=== PATIENT | male | born 1950 | race African-American/Black ===

== ENCOUNTER 2018-04-26 18:40 | Inpatient (IN) ==
[2018-04-26] MEDS ORDERED: Sod Chloride 0.9% Inj 2,000 ML IV.SIG ONE (19:56)
[2018-04-26] MEDS ORDERED: Acetaminophen 325 MG Tablet PO ONE (19:56)
[2018-04-26 20:45] LABS: Baso # (Auto) 0.1 th/mm3 (0.0-0.2); Baso % (Auto) 0.4 % (0.0-2.0); Eos % (Auto) 0.1 % (0.0-4.0); Hematocrit 38.8 % (39.0-51.0); Hemoglobin 12.2 gm/dL (13.0-17.0); Lymph # (Auto) 0.5 th/mm3 (1.0-4.8); Lymph % (Auto) 2.6 % (9.0-44.0); Mean Corpuscular HGB Conc 31.6 % (32.0-36.0); Mean Corpuscular Hemoglobin 27.6 pg (27.0-34.0); Mean Corpuscular Volume 87.5 fL (80.0-100.0); Mean Platelet Volume 8.1 fL (7.0-11.0); Mono # (Auto) 1.1 th/mm3 (0.0-0.9); Mono % (Auto) 6.5 % (0.0-8.0); Neut # (Auto) 15.6 th/mm3 (1.8-7.7); Neut % (Auto) 90.4 % (16.0-70.0); Platelet Count 307 th/mm3 (150-450); Red Blood Count 4.43 mil/mm3 (4.50-5.90); White Blood Count 17.2 th/mm3 (4.0-11.0)
[2018-04-26] MEDS ORDERED: Aztreonam Inj 2 GM in Sodium Chloride 0.9% Inj 100 ML IV.SIG STA (20:49)
[2018-04-26] MEDS ORDERED: Vancomycin Inj 1,000 MG in Sodium Chlor 0.9% Inj 250 ML IV.SIG STA (20:49)
--- NOTE | 2018-04-26 20:54 | XR ---
EXAM DATE: 04/26/2018 8:16 PM EDT AGE/SEX: 67 years / Male INDICATIONS: Fever. CLINICAL DATA: This is the patient's initial encounter. Patient reports that signs and symptoms have been present for 1 day and indicates a pain score of 0/10. MEDICAL/SURGICAL HISTORY: . Hypertension. Arthritis None. COMPARISON: [facility], XR CHEST PA AND LAT, 04/03/2016. . FINDINGS: A single AP view of the chest demonstrates the lungs to be symmetrically aerated without evidence of mass, infiltrate or effusion. The cardiomediastinal contours are unremarkable. Osseous structures a re intact. Spurs are seen in the thoracic spine. CONCLUSION: No acute cardiothoracic process. Electronically signed by: Shaun Faye MD 04/26/2018 8:52 PM EDT
[2018-04-26 20:59] LABS: Albumin 2.9 g/dL (3.4-5.0); Anion Gap 10 meq/L (5-15); Aspartate Aminotransferase 31 U/L (15-37); Blood Urea Nitrogen 16 mg/dL (7-18); Calcium 8.8 mg/dL (8.5-10.1); Carbon Dioxide 22.7 meq/L (21.0-32.0); Chloride 104 meq/L (98-107); Glomerular Filtration Rate 61 mL/min (>89); Glucose,Random 125 mg/dL (74-106); Sodium 137 meq/L (136-145)
[2018-04-26 21:04] LABS: Alanine Aminotransferase 30 U/L (12-78); Alkaline Phosphatase 79 U/L (45-117); Total Protein 9.8 g/dL (6.4-8.2)
--- NOTE | 2018-04-26 21:33 | ED ---
HPI General Chief Complaint: Extremity Injury, Lower Stated Complaint: Leg Pain Time Seen by Provider: 04/26/18 19:45 Source: patient Mode of arrival: ambulatory Limitations: no limitations History of Present Illness HPI Narrative: 67-year-old male with PMH of DM, HTN presents the ED for evaluation of pain and swelling of the right lower extremity. Gradual onset. Pain rated 8/10 on presentation, aching in character, no alleviating or exacerbating factors reported. Patient states that the swelling gets worse with standing and is improved by elevating the leg. The patient endorses "hitting my ankle" first he says 2 or 3 days ago but then states the wounds been there "about a month." He denies fever, chills, chest pain, shortness of breath, abdominal pain, nausea, vomiting, numbness, tingling, weakness, limitations range of motion of the extremity. No treatment attempted at home. Related Data Home Medications Medication Instructions Recorded Confirmed Unable to Obtain Home Meds 04/26/18 04/26/18 Allergies Allergy/AdvReac Type Severity Reaction Status Date / Time penicillin G Allergy Severe HIVES Unverified 04/26/18 21:29 tetanus toxoid, adsorbed Allergy Severe Edema Unverified 04/26/18 21:29 Review of Systems ROS: all other systems reviewed are negative PMFSH Medical History Medical History Diabetes (Acute) Social History Social History Substance History: No History of Abuse Second Hand Smoke Exposure: No Smoking Status: Never smoker How Often Do You Have a Drink Containing Alcohol: Never Exam Narrative Exam Narrative: GENERAL: Well-nourished and well-developed -Cong[place]ese male in no acute distress. SKIN: Focused skin assessment warm/dry. Chronic skin changes in the bilateral lower extremities. HEAD: Atraumatic. Normocephalic. EYES: Pupils equal and round. No scleral icterus. No injection or drainage. ENT: No nasal bleeding or discharge. Mucous membranes pink and moist. NECK: Trachea midline. No JVD. CARDIOVASCULAR: Regular rate and rhythm. No murmur appreciated. RESPIRATORY: No accessory muscle use. Clear to auscultation. Breath sounds equal bilaterally. GASTROINTESTINAL: Abdomen soft, non-tender, nondistended. Hepatic and splenic margins not palpable. MUSCULOSKELETAL: No obvious deformities. No clubbing. No cyanosis. No edema. FOCUSED RIGHT LOWER EXTREMITY EXAM: 2+ DP pulse. 2+ pitting edema to the knee. Homans sign positive. There is a tender, shallow, 3-4 cm ulcer on the lateral aspect of the right ankle. The extremity is warm to the touch. Neurovascularly intact distally. NEUROLOGICAL: Awake and alert. No obvious cranial nerve deficits. Motor grossly within normal limits. Normal speech. PSYCHIATRIC: Appropriate mood and affect; insight and judgment normal. Course Initial Documented Vital Signs Temperature 102.7 F H 04/26/18 19:12 Pulse Rate 120 H 04/26/18 19:12 Respiratory Rate 23 04/26/18 19:12 Blood Pressure 155/79 H 04/26/18 19:12 Pulse Oximetry 96 04/26/18 19:12 Last Documented Vital Signs Temperature 99.1 F 04/26/18 21:41 Pulse Rate 106 H 04/26/18 21:41 Respiratory Rate 18 04/26/18 21:41 Blood Pressure 138/62 04/26/18 21:41 Pulse Oximetry 94 L 04/26/18 21:41 Medical Decision Making MDM Narrative Medical decision making narrative: 67-year-old male with PMH of DM, HTN presents the ED for evaluation of pain and swelling in the right lower extremity. Temp is 102.9, heart rate in the 120s on presentation. Physical exam concerning for cellulitis of the right lower extremity. IV was established. Sepsis fluid resuscitation was initiated. Patient was administered Tylenol by mouth. CBC with leukocytosis of 70.2, neutrophil predominant. Creatinine 1.39. BUN 16. Lactic acid 2.6. Patient was administered aztreonam, Flagyl, vancomycin. Ultrasound and x-ray of the right lower extremity pending. I discussed the results of the workup as well as the recommendation for admission with the patient. He reluctantly agreed to admission. I spoke with GILMER Castro. She agrees to accept the patient to the medicine service under Dr. Menjivar. Please see medicine notes for disposition. Medical Screen Exam Complete: Yes Emergency Medical Condition: Yes Differential Diagnosis Differential Diagnosis: Dependent edema versus CHF versus DVT versus osteomyelitis versus cellulitis versus sepsis versus other Lab Data Result diagrams: 04/26/18 20:10 04/26/18 20:10 Lab Results 04/26/18 04/26/18 04/26/18 Range/Units 20:10 20:10 20:20 WBC 17.2 H (4.0-11.0) th/mm3 RBC 4.43 L (4.50-5.90) mil/mm3 Hgb 12.2 L (13.0-17.0) gm/dL Hct 38.8 L (39.0-51.0) % MCV 87.5 (80.0-100.0) fL MCH 27.6 (27.0-34.0) pg MCHC 31.6 L (32.0-36.0) % RDW 14.0 (11.6-17.2) % Plt Count 307 (150-450) th/mm3 MPV 8.1 (7.0-11.0) fL Neut % (Auto) 90.4 H (16.0-70.0) % Lymph % (Auto) 2.6 L (9.0-44.0) % [place] % (Auto) 6.5 (0.0-8.0) % Eos % (Auto) 0.1 (0.0-4.0) % Baso % (Auto) 0.4 (0.0-2.0) % Neut # (Auto) 15.6 H (1.8-7.7) th/mm3 Lymph # (Auto) 0.5 L (1.0-4.8) th/mm3 [place] # (Auto) 1.1 H (0.0-0.9) th/mm3 Eos # (Auto) 0.0 (0.0-0.4) th/mm3 Baso # (Auto) 0.1 (0.0-0.2) th/mm3 WBC Differential . Differential Comment Auto diff final Sodium 137 (136-145) meq/L Potassium 4.0 (3.5-5.1) meq/L Chloride 104 (98-107) meq/L Carbon Dioxide 22.7 (21.0-32.0) meq/L Anion Gap 10 (5-15) meq/L BUN 16 (7-18) mg/dL Creatinine 1.39 H (0.60-1.30) mg/dL Estimated GFR 61 L (>89) mL/min Random Glucose 125 H (74-106) mg/dL Lactic Acid 2.6 H (0.4-2.0) mmol/L Calcium 8.8 (8.5-10.1) mg/dL Total Bilirubin 1.1 H (0.2-1.0) mg/dL AST 31 (15-37) U/L ALT 30 (12-78) U/L Alkaline Phosphatase 79 (45-117) U/L B-Natriuretic Peptide (0-100) pg/mL Total Protein 9.8 H (6.4-8.2) g/dL Albumin 2.9 L (3.4-5.0) g/dL Urine Color (Yellw/Straw) Urine Clarity (Clear) Urine pH (5.0-8.5) Ur Specific [place] (1.002-1.035) Urine Protein (Neg-Trace) mg/dL Urine Glucose (UA) (Negative) mg/dL Urine Ketones (Negative) mg/dL Urine Occult Blood (Negative) Urine Nitrate (Negative) Urine Bilirubin (Negative) Urine Urobilinogen (Less than 2) mg/dL Ur Leukocyte Esterase (Negative) Urine RBC (0-3) /hpf Urine WBC (0-5) /hpf Ur Squamous Epith Cells (0-5) /hpf Urine Mucus (Occasional) /lpf Micro UA Comment Ur Microscopic Review Urine Culture Comments 04/26/18 04/26/18 Range/Units 21:41 21:45 WBC (4.0-11.0) th/mm3 RBC (4.50-5.90) mil/mm3 Hgb (13.0-17.0) gm/dL Hct (39.0-51.0) % MCV (80.0-100.0) fL MCH (27.0-34.0) pg MCHC (32.0-36.0) % RDW (11.6-17.2) % Plt Count (150-450) th/mm3 MPV (7.0-11.0) fL Neut % (Auto) (16.0-70.0) % Lymph % (Auto) (9.0-44.0) % [place] % (Auto) (0.0-8.0) % Eos % (Auto) (0.0-4.0) % Baso % (Auto) (0.0-2.0) % Neut # (Auto) (1.8-7.7) th/mm3 Lymph # (Auto) (1.0-4.8) th/mm3 [place] # (Auto) (0.0-0.9) th/mm3 Eos # (Auto) (0.0-0.4) th/mm3 Baso # (Auto) (0.0-0.2) th/mm3 WBC Differential Differential Comment Sodium (136-145) meq/L Potassium (3.5-5.1) meq/L Chloride (98-107) meq/L Carbon Dioxide (21.0-32.0) meq/L Anion Gap (5-15) meq/L BUN (7-18) mg/dL Creatinine (0.60-1.30) mg/dL Estimated GFR (>89) mL/min Random Glucose (74-106) mg/dL Lactic Acid (0.4-2.0) mmol/L Calcium (8.5-10.1) mg/dL Total Bilirubin (0.2-1.0) mg/dL AST (15-37) U/L ALT (12-78) U/L Alkaline Phosphatase (45-117) U/L B-Natriuretic Peptide 53 (0-100) pg/mL Total Protein (6.4-8.2) g/dL Albumin (3.4-5.0) g/dL Urine Color [place] (Yellw/Straw) Urine Clarity Hazy H (Clear) Urine pH 5.0 (5.0-8.5) Ur Specific [place] 1.017 (1.002-1.035) Urine Protein 30 H (Neg-Trace) mg/dL Urine Glucose (UA) Negative (Negative) mg/dL Urine Ketones Negative (Negative) mg/dL Urine Occult Blood Small H (Negative) Urine Nitrate Negative (Negative) Urine Bilirubin Negative (Negative) Urine Urobilinogen 4 or greater (Less than 2) mg/dL Ur Leukocyte Esterase Negative (Negative) Urine RBC Less than 1 (0-3) /hpf Urine WBC 1 (0-5) /hpf Ur Squamous Epith Cells <1 (0-5) /hpf Urine Mucus Few H (Occasional) /lpf Micro UA Comment Culture not ind Ur Microscopic Review Not Reportable Urine Culture Comments Culture not ind Imaging Data Radiologist's impression: Venous Doppler Study 04/26/18 19:56 CONCLUSION: No DVT. Chest X-Ray 04/26/18 19:58 CONCLUSION: No acute cardiothoracic process. Ankle X-Ray 04/26/18 21:43 CONCLUSION: Edema and possible ulcer seen laterally. Chronic hypertrophic change as described above. Discharge Plan Discharge Disposition Patient Disposition: 30 Still Patient Discharge Details Diagnosis: Cellulitis of leg, right, Sepsis Physicians Team ED Provider: Juliette Nieves ED Midlevel Provider: Lavinia Albarran Primary Care Provider: Rich Steele Attending Provider: Stevan Menjivar Other Providers: Es Holder Status ED Status: Admitted Patient
[2018-04-26 22:08] LABS: Bilirubin,Urine Negative (Negative); Clarity,Urine Hazy (Clear); Color,Urine Amber (Yellw/Straw); Glucose,Urine (UA) Negative (Negative); Leukocyte Esterase,Urine Negative (Negative); Mucus,Urine Few /lpf (Occasional); Nitrite,Urine Negative (Negative); Specific Gravity,Urine 1.017 (1.002-1.035); Squamous Epithelial Cell,Urine <1 /hpf (0-5); Urobilinogen,Urine 4 or Greater mg/dL (Less than 2)
[2018-04-26] MEDS ORDERED: Acetaminophen 325 MG Tablet PO PRN (22:26)
[2018-04-26] MEDS ORDERED: Dextrose 50% in Water 50 ML Vial IV.PUSH PRN (22:28)
[2018-04-26] MEDS ORDERED: Vancomycin Consult Pharmacy OTHER PRN (22:29)
--- NOTE | 2018-04-26 22:40 | XR ---
EXAM DATE: 04/26/2018 10:05 PM EDT AGE/SEX: 67 years / Male INDICATIONS: Right lower leg swelling and pain. Ulcer on lateral side of leg. CLINICAL DATA: This is the patient's initial encounter. Patient reports that signs and symptoms have been present for 1 week and indicates a pain score of 5/10. MEDICAL/SURGICAL HISTORY: . Hypertension. Asthma. Arthritis. None. COMPARISON: No prior exams available for comparison. FINDINGS: No fracture is seen. The ankle is normally aligned. There are some hypertrophic change seen posterior to the distal tibia. There are some hypertrophic change at the posterior calcaneus at the Achilles a nd plantar aponeurosis attachment sites. There is soft tissue swelling seen at the ankle being worse laterally. There appears to be a possible ulcer skin defect at the lateral soft tissues. No periostea l reaction is seen. Vascular calcifications are seen. CONCLUSION: Edema and possible ulcer seen laterally. Chronic hypertrophic change as described above. Electronically signed by: Shaun Faye MD 04/26/2018 10:38 PM EDT
--- NOTE | 2018-04-26 22:41 | US ---
EXAM DATE: 04/26/2018 10:25 PM EDT AGE/SEX: 67 years / Male INDICATIONS: Right leg pain and swelling. CLINICAL DATA: This is the patient's subsequent encounter. Patient reports that signs and symptoms h ave been present for 1 week and indicates a pain score of 6/10. MEDICAL/SURGICAL HISTORY: Diabetes. None. COMPARISON: No prior exams available for comparison. TECHNIQUE: Venous ultrasound of both lower extremities was performed from the inguinal ligament to t he proximal calf. Real-time, color Doppler and spectral tracing, compression and augmentation techni ques were used. FINDINGS: Normal compression of the deep venous system from the inguinal region to the proximal calf . No echogenic clot is seen. Normal response of the venous system to augmentation and respiration. Th ere is a prominent right inguinal lymph node measuring 3.2 x 1.4 x 4.1 cm. This does have a normal fa tty hilum. CONCLUSION: No DVT. Electronically signed by: Shaun Faye MD 04/26/2018 10:39 PM EDT
--- NOTE | 2018-04-26 23:08 | P.HPIM ---
History of Present Illness Primary Care Physician: Rich Steele DO History of Present Illness: 67 y/o male with a history of DM presented to the ED for a right ankle wound with pain and swelling. Patient states he has had the wound for the past month and it is not healing. He states the pain is aching, intermittent 6/10, to the right ankle with no radiation, and with associated edema, and worse with walking and movement. Denies any associated fevers, chills, chest pain, sob, or headaches. He does not have a pcp and has not had any treatment. Inpatient Certification: I certify that the inpatient services were ordered in accordance with Medicare regulations governing the order. This includes certification that hospital inpatient services are reasonable and necessary and in the case of services not specified as inpatient-only under 42 CFR 419.22(n), that they are appropriately provided as inpatient services in accordance to with the 2-midnight benchmark under 43 CFR 412.3(e) Estimated Total Length of Stay (Days): 3 Plans for Post Hospital Care: Home Review of Systems All other systems reviewed negative except as stated in HPI PMFSH - History History Provided By: Patient - Medical / Surgical Hx Neg / Unobtainable Surgical History: No Previous Surgery - Medical History Medical History: Medical History (Last Updated 04/26/18 @ 19:14 by Bri Bowman RN) Diabetes - Surgical History Surgical History: Surgical History (Last Updated 04/26/18 @ 23:01 by CHARLIE Lindsay) No history of previous surgery - Family History Family History: Family History (Last Updated 04/26/18 @ 23:01 by CHARLIE Lindsay) Other No family history of diabetes mellitus - Tobacco History Second Hand Smoke Exposure: No Tobacco Use In Past 30 Days: No Smoking Status: Never smoker - Alcohol History How Often Do You Have a Drink Containing Alcohol: Never - Substance Use History Substance History: No History of Abuse - Immunization History Tetanus Immunization: Never Vaccinated Hx Influenza Vaccine This Season: No Medications and Allergies Active Medications: Active Medications Acetaminophen (Tylenol) 650 mg PO Q4H PRN PRN Reason: Temp > 100.4 Dextrose (D50w Vial) 50 ml IV.PUSH UNSCH PRN PRN Reason: PER HYPOGLYCEMIA PROTOCOL Glucagon (Glucagon Inj) 1 mg OTHER PRN PRN PRN Reason: for Hypoglycemia Protocol Aztreonam 2 gm/ Sodium (Chloride) 100 mls @ 200 mls/hr IV.SIG Q8H [facility] Vancomycin HCl 1,500 mg/ (Sodium Chloride) 515 mls @ 250 mls/hr IV.SIG Q18H [facility] Insulin Aspart (Novolog Insulin Correctional Sugar Inj) 0 unit SQ ACHS HERRERA; Protocol Ondansetron HCl (Zofran Inj) 4 mg IV.PUSH Q6H PRN PRN Reason: NAUSEA OR VOMITING Pharmacy Profile Note (Vancomycin Consult Pharmacy) 1 each OTHER UNSCH PRN PRN Reason: Pharmacy to dose Allergies Allergy/AdvReac Type Severity Reaction Status Date / Time penicillin G Allergy Severe HIVES Unverified 04/26/18 21:29 tetanus toxoid, adsorbed Allergy Severe Edema Unverified 04/26/18 21:29 Home Medications Medication Instructions Recorded Confirmed Type Unable to Obtain Home Meds 04/26/18 04/26/18 History Exam Vital signs: Vital Signs 04/26/18 19:12 04/26/18 21:41 Temperature 102.7 F H 99.1 F Pulse Rate 120 H 106 H Respiratory Rate 23 18 Blood Pressure 155/79 H 138/62 Pulse Oximetry 96 94 L Intake & Output 04/26/18 04/26/18 04/27/18 06:59 18:59 06:59 Intake Total 2099 Balance 2099 Weight 106.594 kg Intake: IV 2099 NS Inj 2,000 ML @ Wide Open IV. 1999 SIG BOLUS ONE Rx#:[id number] Flagyl 500 MG Inj 100 ML @ 100 100 / 100 mls/hr IV.SIG STAT STA Rx#: [id number] Narrative: GENERAL: This is a well-nourished, well-developed patient, in no apparent distress. SKIN: Right lateral ankle wound, non healing, non draining CARDIOVASCULAR: Regular rate and rhythm without murmurs, gallops, or rubs. RESPIRATORY: Clear to auscultation. Breath sounds equal bilaterally. No wheezes , rales, or rhonchi. GASTROINTESTINAL: Abdomen soft, non-tender, nondistended. Normal active bowel sounds MUSCULOSKELETAL: Bilateral lower extremity non pitting edema NEURO: Alert & Oriented x4 to person, place, time, situation. Moves all ext x4 Results - Labs CBC & Chem 7: 04/26/18 20:10 04/26/18 20:10 Labs: Short CBC 04/26/18 Range/Units 20:10 WBC 17.2 H (4.0-11.0) th/mm3 Hgb 12.2 L (13.0-17.0) gm/dL Hct 38.8 L (39.0-51.0) % Plt Count 307 (150-450) th/mm3 BMP 04/26/18 20:10 Sodium 137 Potassium 4.0 Chloride 104 Carbon Dioxide 22.7 BUN 16 Creatinine 1.39 H Calcium 8.8 Liver Function 04/26/18 Range/Units 20:10 Total Bilirubin 1.1 H (0.2-1.0) mg/dL AST 31 (15-37) U/L ALT 30 (12-78) U/L Alkaline Phosphatase 79 (45-117) U/L Albumin 2.9 L (3.4-5.0) g/dL Urine 04/26/18 Range/Units 21:41 Urine Color [place] (Yellw/Straw) Urine Clarity Hazy H (Clear) Urine pH 5.0 (5.0-8.5) Ur Specific [place] 1.017 (1.002-1.035) Urine Protein 30 H (Neg-Trace) mg/dL Urine Glucose (UA) Negative (Negative) mg/dL - Imaging Impressions Venous Doppler Study 04/26/18 19:56 CONCLUSION: No DVT. Chest X-Ray 04/26/18 19:58 CONCLUSION: No acute cardiothoracic process. Ankle X-Ray 04/26/18 21:43 CONCLUSION: Edema and possible ulcer seen laterally. Chronic hypertrophic change as described above. Caprini VTE Risk Assessment Caprini VTE Risk Assessment: Moderate/High Risk (score >= 2) Caprini Risk Assessment Model: Point Value = 1 Point Value = 2 Point Value = 3 Point Value = 5 Age 41-60 Minor surgery BMI > 25 kg/m2 Swollen legs Varicose veins or History of unexplained or recurrent spontaneous Oral contraceptives or hormone replacement Sepsis (< 1 month) Serious lung disease, including pneumonia (< 1 month) Abnormal pulmonary function Acute myocardial infarction Congestive heart failure (< 1 month) History of inflammatory bowel disease Medical patient at bed rest Age 61-74 Arthroscopic surgery Major open surgery (> 45 min) Laparoscopic surgery (> 45 min) Malignancy Confined to bed (> 72 hours) Immobilizing plaster cast Central venous access Age >= 75 History of VTE Family history of VTE Factor V Leiden Prothrombin [id number] Lupus anticoagulant Anticardiolipin antibodies Elevated serum homocysteine Heparin-induced thrombocytopenia Other congenital or acquired thrombophilia Stroke (< 1 month) Elective arthroplasty Hip, pelvis, or leg fracture Acute spinal cord injury (< 1 month) Prophylaxis Regimen: Total Risk Factor Score Risk Level Prophylaxis Regimen 0-1 Low Early ambulation 2 Moderate Order ONE of the following: *Sequential Compression Device (SCD) *Heparin 5000 units SQ BID 3-4 Higher Order ONE of the following medications: *Heparin 5000 units SQ TID *Enoxaparin/Lovenox 40 mg SQ daily (WT < 150 kg, CrCl > 30 mL/min) *Enoxaparin/Lovenox 30 mg SQ daily (WT < 150 kg, CrCl > 10-29 mL/min) *Enoxaparin/Lovenox 30 mg SQ BID (WT < 150 kg, CrCl > 30 mL/min) AND/OR *Sequential Compression Device (SCD) 5 or more Highest Order ONE of the following medications: *Heparin 5000 units SQ TID (Preferred with Epidurals) *Enoxaparin/Lovenox 40 mg SQ daily (WT < 150 kg, CrCl > 30 mL/min) *Enoxaparin/Lovenox 30 mg SQ daily (WT < 150 kg, CrCl > 10-29 mL/min) *Enoxaparin/Lovenox 30 mg SQ BID (WT < 150 kg, CrCl > 30 mL/min) AND *Sequential Compression Device (SCD) Assessment and Plan - Plan 67 y/o male with a history of DM presented to the ED for a right ankle wound with pain and swelling. Patient states he has had the wound for the past month and it is not healing. Severe Sepsis, Tachycardia, wbc 17.2, lactic 2.6, likely due to a diabetic ulcer -IV antibiotics: Vancomycin and Azactam -NS bolus given in ED, cont IVF -Trend lactic acid and cbc -Blood and wound cultures pending Diabetic ulcer, right lateral ankle Ankle xray reviewed and shows edema and possible ulcer, no fracture -Consult podiatry for evaluation -Cont IV antibiotics -Venous Doppler reviewed and negative for DVT -Pain management with PO norco Diabetes, chronic -Accu checks with SSI -Diabetic diet when no longer NPO CKD, patient denies history, creatine 1.5, around baseline -Trend creatine -Avoid nephrotoxins DVT prophylaxis: SCDs Discussed Condition With: Patient and RN
[2018-04-26] MEDS: Sod Chloride 0.9% Inj 1,000 ML IV.CONT SCH (23:25)
[2018-04-27 07:07] LABS: Baso # (Auto) 0.1 th/mm3 (0.0-0.2); Baso % (Auto) 0.4 % (0.0-2.0); Eos % (Auto) 0.3 % (0.0-4.0); Hematocrit 36.3 % (39.0-51.0); Hemoglobin 11.7 gm/dL (13.0-17.0); Lymph # (Auto) 0.9 th/mm3 (1.0-4.8); Mean Corpuscular HGB Conc 32.2 % (32.0-36.0); Mean Corpuscular Hemoglobin 27.9 pg (27.0-34.0); Mean Corpuscular Volume 86.8 fL (80.0-100.0); Mean Platelet Volume 8.5 fL (7.0-11.0); Mono % (Auto) 6.9 % (0.0-8.0); Neut # (Auto) 12.4 th/mm3 (1.8-7.7); Neut % (Auto) 86.4 % (16.0-70.0); Platelet Count 264 th/mm3 (150-450); Red Blood Count 4.18 mil/mm3 (4.50-5.90); Red Cell Distribution Width 13.8 % (11.6-17.2); White Blood Count 14.4 th/mm3 (4.0-11.0)
[2018-04-27 07:28] LABS: Calcium 8.4 mg/dL (8.5-10.1); Carbon Dioxide 25.2 meq/L (21.0-32.0); Potassium 3.8 meq/L (3.5-5.1)
[2018-04-27] MEDS: Aztreonam Inj 2 GM in Sodium Chloride 0.9% Inj 100 ML IV.SIG SCH ×3 (08:20→20:53)
--- NOTE | 2018-04-27 08:26 | P.PN ---
Subjective Interval history: This is a pleasant 67 y/o Male with DM II, who came to ER with right ankle, with wound and swelling he has had the wound for the past month and it is not healing. He states the pain is aching, intermittent 6/10, to the right ankle with no radiation, and with associated edema, and worse with walking and movement. Denies any associated fevers, chills, chest pain, sob, or headaches. He does not have a pcp and has not had any treatment. Given Aztreonam and Vancomycin in ER, he is allergic to Penicillin, temperature 102.7F, seen in his bedroom and nurse and patient asking to eat was started on diet, awaiting for Podiatry specialist evaluation. Physical Exam Vital signs: Vital Signs 04/26/18 19:12 04/26/18 21:41 04/26/18 23:05 Temperature 102.7 F H 99.1 F Pulse Rate 120 H 106 H 95 H Respiratory Rate 23 18 Blood Pressure 155/79 H 138/62 Pulse Oximetry 96 94 L 95 04/27/18 01:02 04/27/18 05:54 04/27/18 08:04 Temperature Pulse Rate 95 H 84 87 Respiratory Rate 18 18 20 Blood Pressure 136/60 137/76 152/77 H Pulse Oximetry 97 94 L Intake & Output 04/26/18 04/27/18 04/27/18 18:59 06:59 18:59 Intake Total 2450 / 2450 Output Total 500 / 500 600 / 600 Balance 1950 / 1950 -600 / -600 Weight 106.594 kg Intake: IV 2450 / 2450 Azactam Inj 2 GM In NS Inj 100 100 / 100 ML @ 200 mls/hr IV.SIG STAT STA Rx#:[id number] NS Inj 2,000 ML @ Wide Open IV. 1999 / 1999 SIG BOLUS ONE Rx#:[id number] Vancomycin Inj 1,000 MG In NS 250 / 250 Inj 250 ML @ 250 mls/hr IV.SIG STAT STA Rx#:[id number] Flagyl 500 MG Inj 100 ML @ 100 100 / 100 mls/hr IV.SIG STAT STA Rx#: [id number] Output: Urine 500 / 500 600 / 600 Narrative: GENERAL: This is a well-nourished, well-developed patient, in no apparent distress. SKIN: Right lateral ankle wound, non healing, non draining CARDIOVASCULAR: Regular rate and rhythm without murmurs, gallops, or rubs. RESPIRATORY: Clear to auscultation. Breath sounds equal bilaterally. No wheezes , rales, or rhonchi. GASTROINTESTINAL: Abdomen soft, non-tender, nondistended. Normal active bowel sounds MUSCULOSKELETAL: Bilateral lower extremity non pitting edema NEURO: Alert & Oriented x4 to person, place, time, situation. Moves all ext x4 Results - Labs CBC & Chem 7: 04/27/18 05:45 04/27/18 05:45 Laboratory Results - last 24 hr 04/26/18 04/26/18 04/26/18 20:10 20:10 20:20 WBC 17.2 H RBC 4.43 L Hgb 12.2 L Hct 38.8 L MCV 87.5 MCH 27.6 MCHC 31.6 L RDW 14.0 Plt Count 307 MPV 8.1 Neut % (Auto) 90.4 H Lymph % (Auto) 2.6 L [place] % (Auto) 6.5 Eos % (Auto) 0.1 Baso % (Auto) 0.4 Neut # (Auto) 15.6 H Lymph # (Auto) 0.5 L [place] # (Auto) 1.1 H Eos # (Auto) 0.0 Baso # (Auto) 0.1 WBC Differential . Differential Comment Auto diff final Sodium 137 Potassium 4.0 Chloride 104 Carbon Dioxide 22.7 Anion Gap 10 BUN 16 Creatinine 1.39 H Estimated GFR 61 L Random Glucose 125 H Lactic Acid 2.6 H Calcium 8.8 Total Bilirubin 1.1 H AST 31 ALT 30 Alkaline Phosphatase 79 B-Natriuretic Peptide Total Protein 9.8 H Albumin 2.9 L Urine Color Urine Clarity Urine pH Ur Specific [place] Urine Protein Urine Glucose (UA) Urine Ketones Urine Occult Blood Urine Nitrate Urine Bilirubin Urine Urobilinogen Ur Leukocyte Esterase Urine RBC Urine WBC Ur Squamous Epith Cells Urine Mucus Micro UA Comment Ur Microscopic Review Urine Culture Comments 04/26/18 04/26/18 04/26/18 21:41 21:45 22:33 WBC RBC Hgb Hct MCV MCH MCHC RDW Plt Count MPV Neut % (Auto) Lymph % (Auto) [place] % (Auto) Eos % (Auto) Baso % (Auto) Neut # (Auto) Lymph # (Auto) [place] # (Auto) Eos # (Auto) Baso # (Auto) WBC Differential Differential Comment Sodium Potassium Chloride Carbon Dioxide Anion Gap BUN Creatinine Estimated GFR Random Glucose Lactic Acid 1.5 Calcium Total Bilirubin AST ALT Alkaline Phosphatase B-Natriuretic Peptide 53 Total Protein Albumin Urine Color [place] Urine Clarity Hazy H Urine pH 5.0 Ur Specific [place] 1.017 Urine Protein 30 H Urine Glucose (UA) Negative Urine Ketones Negative Urine Occult Blood Small H Urine Nitrate Negative Urine Bilirubin Negative Urine Urobilinogen 4 or greater Ur Leukocyte Esterase Negative Urine RBC Less than 1 Urine WBC 1 Ur Squamous Epith Cells <1 Urine Mucus Few H Micro UA Comment Culture not ind Ur Microscopic Review Not Reportable Urine Culture Comments Culture not ind 04/27/18 04/27/18 04/27/18 01:40 05:45 05:45 WBC 14.4 H RBC 4.18 L Hgb 11.7 L Hct 36.3 L MCV 86.8 MCH 27.9 MCHC 32.2 RDW 13.8 Plt Count 264 MPV 8.5 Neut % (Auto) 86.4 H Lymph % (Auto) 6.0 L [place] % (Auto) 6.9 Eos % (Auto) 0.3 Baso % (Auto) 0.4 Neut # (Auto) 12.4 H Lymph # (Auto) 0.9 L [place] # (Auto) 1.0 H Eos # (Auto) 0.0 Baso # (Auto) 0.1 WBC Differential . Differential Comment Auto diff final Sodium 142 Potassium 3.8 Chloride 107 Carbon Dioxide 25.2 Anion Gap 10 BUN 14 Creatinine 1.20 Estimated GFR 73 L Random Glucose 101 Lactic Acid 1.1 Calcium 8.4 L Total Bilirubin AST ALT Alkaline Phosphatase B-Natriuretic Peptide Total Protein Albumin Urine Color Urine Clarity Urine pH Ur Specific [place] Urine Protein Urine Glucose (UA) Urine Ketones Urine Occult Blood Urine Nitrate Urine Bilirubin Urine Urobilinogen Ur Leukocyte Esterase Urine RBC Urine WBC Ur Squamous Epith Cells Urine Mucus Micro UA Comment Ur Microscopic Review Urine Culture Comments - Imaging Impressions Venous Doppler Study 04/26/18 19:56 CONCLUSION: No DVT. Chest X-Ray 04/26/18 19:58 CONCLUSION: No acute cardiothoracic process. Ankle X-Ray 04/26/18 21:43 CONCLUSION: Edema and possible ulcer seen laterally. Chronic hypertrophic change as described above. Assessment and Plan - Plan 67 y/o male with a history of DM presented to the ED for a right ankle wound with pain and swelling. Patient states he has had the wound for the past month and it is not healing. Severe Sepsis, Tachycardia, wbc 17.2, lactic 2.6, likely due to a diabetic ulcer -IV antibiotics: Vancomycin and Azactam -NS bolus given in ED, cont IVF -Trend lactic acid and cbc -following blood culture and wound culture. Diabetic ulcer, right lateral ankle Ankle xray reviewed and shows edema and possible ulcer, no fracture -Consult podiatry for evaluation -Cont IV antibiotics -Venous Doppler reviewed and negative for DVT -Pain management with PO norco Diabetes, chronic -Accu checks with SSI -Diabetic diet when no longer NPO JAIRO on CKD improving to baseline. Hypertension started on Lisinopril 10 mg daily. DVT prophylaxis: SCDs Code Status: full code. Discussed Condition With: patient and nurse. Discharge Planning: Once cleared by Podiatry.
[2018-04-27] MEDS: Vancomycin Inj 1,500 MG in Sodium Chlor 0.9% Inj 500 ML IV.SIG SCH (09:59)
[2018-04-27] MEDS: Sod Chloride 0.9% Inj 1,000 ML IV.CONT SCH ×2 (09:59→19:38)
[2018-04-27] MEDS: Insulin NovoLOG Aspart Correctional Sugar Inj SQ SCH ×4 (10:17→20:54)
[2018-04-27 12:02] LABS: Chol/HDL Ratio 3.48 Ratio; HDL Cholesterol 34.1 mg/dL (40.0-60.0); Thyroid Stimulating Hormone 1.51 uIU/mL (0.358-3.740)
[2018-04-27 12:57] LABS: Hemoglobin A1c 6.7 % (4.3-6.0)
--- NOTE | 2018-04-27 15:41 | P.CONPOD ---
History of Present Illness Service: Foot and ankle surgery/podiatry Consult date: 04/27/18 Reason for Consult: Right lower extremity ulceration Primary Care Provider: Rich Steele DO Chief Complaint: Right lower extremity ulcer with pain and swelling History of Present Illness: Podiatry consulted for this 67-year-old male with a history of diabetes mellitus who presented to the emergency department for a right ankle wound with pain and swelling. Patient states this is a chronic wound he has had for over a month and it is not healing. He denies any nausea vomiting fevers or chills. He has not been treating ulceration at all. He lives alone in a motel states his friends help him. Review of Systems Constitutional: Denies body ache(s), Denies chills, Denies fever(s), Denies night sweats Cardiovascular: Denies chest pain, Denies shortness of breath Respiratory: Denies cough Gastrointestinal: Denies nausea, Denies vomiting PMFSH - History History Provided By: Patient - Medical History Medical History: Medical History (Last Reviewed 04/27/18 @ 15:36 by Es Holder DPM) Diabetes - Surgical History Surgical History: Surgical History (Last Reviewed 04/27/18 @ 15:36 by Es Holder DPM) No history of previous surgery - Family History Family History: Family History (Last Reviewed 04/27/18 @ 15:36 by Es Holder DPM) Other No family history of diabetes mellitus - Tobacco History Second Hand Smoke Exposure: No Tobacco Use In Past 30 Days: No Smoking Status: Never smoker - Alcohol History How Often Do You Have a Drink Containing Alcohol: Never - Substance Use History Substance History: No History of Abuse - Immunization History Tetanus Immunization: Never Vaccinated Hx Influenza Vaccine This Season: No Medications and Allergies Active Medications: Active Medications Acetaminophen (Tylenol) 650 mg PO Q4H PRN PRN Reason: Temp > 100.4 Hydrocodone Bitart/Acetaminophen ([employer] 5/325) 1 tab PO Q4H PRN PRN Reason: pain >5 Dextrose (D50w Vial) 50 ml IV.PUSH UNSCH PRN PRN Reason: PER HYPOGLYCEMIA PROTOCOL Glucagon (Glucagon Inj) 1 mg OTHER PRN PRN PRN Reason: for Hypoglycemia Protocol Aztreonam 2 gm/ Sodium (Chloride) 100 mls @ 200 mls/hr IV.SIG Q8H HERRERA Last Infusion: 04/27/18 15:20 Dose: Infused Vancomycin HCl 1,500 mg/ (Sodium Chloride) 515 mls @ 250 mls/hr IV.SIG Q18H HERRERA Last Infusion: 04/27/18 12:57 Dose: Infused Sodium Chloride (Ns Inj) 1,000 mls @ 100 mls/hr IV.CONT .Q10H HERRERA Last Admin: 04/27/18 09:59 Dose: 100 mls/hr Insulin Aspart (Novolog Insulin [employer] Sugar Inj) 0 unit SQ ACHS HERRERA; Protocol Last Admin: 04/27/18 12:56 Dose: Not Given Miscellaneous Information ([facility] Ordered Lab Info) 0 each OTHER ONCE ONE Stop: 04/28/18 21:46 Ondansetron HCl (Zofran Inj) 4 mg IV.PUSH Q6H PRN PRN Reason: NAUSEA OR VOMITING Pharmacy Profile Note (Vancomycin Consult Pharmacy) 1 each OTHER UNSCH PRN PRN Reason: Pharmacy to dose Allergies Allergy/AdvReac Type Severity Reaction Status Date / Time penicillin G Allergy Severe HIVES Unverified 04/26/18 21:29 tetanus toxoid, adsorbed Allergy Severe Edema Unverified 04/26/18 21:29 Home Medications Medication Instructions Recorded Confirmed Type Unable to Obtain Home Meds 04/26/18 04/26/18 History Physical Exam Vital signs: Vital Signs 04/26/18 19:12 04/26/18 21:41 04/26/18 23:05 Temperature 102.7 F H 99.1 F Pulse Rate 120 H 106 H 95 H Respiratory Rate 23 18 Blood Pressure 155/79 H 138/62 Pulse Oximetry 96 94 L 95 04/27/18 01:02 04/27/18 05:54 04/27/18 08:04 Temperature Pulse Rate 95 H 84 87 Respiratory Rate 18 18 20 Blood Pressure 136/60 137/76 152/77 H Pulse Oximetry 97 94 L 04/27/18 09:59 04/27/18 10:00 04/27/18 12:00 Temperature 99.6 F 97.4 F L Pulse Rate 83 89 92 H Respiratory Rate 18 18 Blood Pressure 132/81 130/76 Pulse Oximetry 97 100 Intake & Output 04/26/18 04/27/18 04/27/18 18:59 06:59 18:59 Intake Total 2450 / 2450 1715 / 1715 Output Total 500 / 500 600 / 600 Balance 1950 / 1949 1115 / 1115 Weight 106.594 kg Intake: IV 2450 / 2450 1715 / 1715 NS Inj 1,000 ML @ 100 mls/hr IV 1000 / 1000 .CONT .Q10H HERRERA Rx#:[id number] Azactam Inj 2 GM In NS Inj 100 100 / 100 200 / 200 ML @ 200 mls/hr IV.SIG Q8H HERRERA Rx#:[id number] NS Inj 2,000 ML @ Wide Open IV. 1999 SIG BOLUS ONE Rx#:[id number] Vancomycin Inj 1,000 MG In NS 250 / 250 Inj 250 ML @ 250 mls/hr IV.SIG STAT STA Rx#:[id number] Vancomycin Inj 1,500 MG In NS 515 / 515 Inj 500 ML @ 250 mls/hr IV.SIG Q18H HERRERA Rx#:[id number] Flagyl 500 MG Inj 100 ML @ 100 100 / 100 mls/hr IV.SIG STAT STA Rx#: [id number] Output: Urine 500 / 500 600 / 600 Other: Date of Last Bowel Movement 04/26/18 Narrative: GENERAL: This is a well-nourished, well-developed patient, in no apparent distress. SKIN: Right lateral lower extremity ulceration HEAD: Atraumatic. EYES: Pupils equal round and reactive. ENT: Airway patent. NECK: Trachea midline. RESPIRATORY: Nonlabored breathing. MUSCULOSKELETAL:. Negative Homans sign bilaterally. NEUROLOGICAL: Awake and alert. Normal speech. Lower extremity physical exam: Vascular: Dorsalis pedis nonpalpable, posterior tibial nonpalpable. Capillary refill time within normal limits to digits 5 bilateral foot. Edema present to bilateral lower extremity with venous stasis dermatitis changes noted Neuro: Gross sensation intact to bilateral lower extremity. Pinpoint sensation decreased. No hyperalgesia noted to bilateral lower extremity Dermatology: Right lateral lower extremity ulceration with fibro-granular base noted and serous drainage. Associated periwound venous stasis dermatitis changes noted. No associated erythema. No probe to bone noted. Musculoskeletal: Tender to palpation to right lateral lower extremity ulceration. No gross osseous deformity noted Results - Labs CBC & Chem 7: 04/27/18 05:45 04/27/18 05:45 Laboratory Results - last 24 hr 04/26/18 04/26/18 04/26/18 20:10 20:10 20:20 WBC 17.2 H RBC 4.43 L Hgb 12.2 L Hct 38.8 L MCV 87.5 MCH 27.6 MCHC 31.6 L RDW 14.0 Plt Count 307 MPV 8.1 Neut % (Auto) 90.4 H Lymph % (Auto) 2.6 L [place] % (Auto) 6.5 Eos % (Auto) 0.1 Baso % (Auto) 0.4 Neut # (Auto) 15.6 H Lymph # (Auto) 0.5 L [place] # (Auto) 1.1 H Eos # (Auto) 0.0 Baso # (Auto) 0.1 WBC Differential . Differential Comment Auto diff final Sodium 137 Potassium 4.0 Chloride 104 Carbon Dioxide 22.7 Anion Gap 10 BUN 16 Creatinine 1.39 H Estimated GFR 61 L POC Glucose Random Glucose 125 H Hemoglobin A1c Lactic Acid 2.6 H Calcium 8.8 Total Bilirubin 1.1 H AST 31 ALT 30 Alkaline Phosphatase 79 B-Natriuretic Peptide Total Protein 9.8 H Albumin 2.9 L Triglycerides Cholesterol LDL Cholesterol, Calc HDL Cholesterol Cholesterol/HDL Ratio Vitamin B12 TSH Urine Color Urine Clarity Urine pH Ur Specific [place] Urine Protein Urine Glucose (UA) Urine Ketones Urine Occult Blood Urine Nitrate Urine Bilirubin Urine Urobilinogen Ur Leukocyte Esterase Urine RBC Urine WBC Ur Squamous Epith Cells Urine Mucus Micro UA Comment Ur Microscopic Review Urine Culture Comments 04/26/18 04/26/18 04/26/18 21:41 21:45 22:33 WBC RBC Hgb Hct MCV MCH MCHC RDW Plt Count MPV Neut % (Auto) Lymph % (Auto) [place] % (Auto) Eos % (Auto) Baso % (Auto) Neut # (Auto) Lymph # (Auto) [place] # (Auto) Eos # (Auto) Baso # (Auto) WBC Differential Differential Comment Sodium Potassium Chloride Carbon Dioxide Anion Gap BUN Creatinine Estimated GFR POC Glucose Random Glucose Hemoglobin A1c Lactic Acid 1.5 Calcium Total Bilirubin AST ALT Alkaline Phosphatase B-Natriuretic Peptide 53 Total Protein Albumin Triglycerides Cholesterol LDL Cholesterol, Calc HDL Cholesterol Cholesterol/HDL Ratio Vitamin B12 TSH Urine Color [place] Urine Clarity Hazy H Urine pH 5.0 Ur Specific [place] 1.017 Urine Protein 30 H Urine Glucose (UA) Negative Urine Ketones Negative Urine Occult Blood Small H Urine Nitrate Negative Urine Bilirubin Negative Urine Urobilinogen 4 or greater Ur Leukocyte Esterase Negative Urine RBC Less than 1 Urine WBC 1 Ur Squamous Epith Cells <1 Urine Mucus Few H Micro UA Comment Culture not ind Ur Microscopic Review Not Reportable Urine Culture Comments Culture not ind 04/27/18 04/27/18 04/27/18 01:40 05:45 05:45 WBC 14.4 H RBC 4.18 L Hgb 11.7 L Hct 36.3 L MCV 86.8 MCH 27.9 MCHC 32.2 RDW 13.8 Plt Count 264 MPV 8.5 Neut % (Auto) 86.4 H Lymph % (Auto) 6.0 L [place] % (Auto) 6.9 Eos % (Auto) 0.3 Baso % (Auto) 0.4 Neut # (Auto) 12.4 H Lymph # (Auto) 0.9 L [place] # (Auto) 1.0 H Eos # (Auto) 0.0 Baso # (Auto) 0.1 WBC Differential . Differential Comment Auto diff final Sodium 142 Potassium 3.8 Chloride 107 Carbon Dioxide 25.2 Anion Gap 10 BUN 14 Creatinine 1.20 Estimated GFR 73 L POC Glucose Random Glucose 101 Hemoglobin A1c Lactic Acid 1.1 Calcium 8.4 L Total Bilirubin AST ALT Alkaline Phosphatase B-Natriuretic Peptide Total Protein Albumin Triglycerides Cholesterol LDL Cholesterol, Calc HDL Cholesterol Cholesterol/HDL Ratio Vitamin B12 TSH Urine Color Urine Clarity Urine pH Ur Specific [place] Urine Protein Urine Glucose (UA) Urine Ketones Urine Occult Blood Urine Nitrate Urine Bilirubin Urine Urobilinogen Ur Leukocyte Esterase Urine RBC Urine WBC Ur Squamous Epith Cells Urine Mucus Micro UA Comment Ur Microscopic Review Urine Culture Comments 04/27/18 04/27/18 04/27/18 09:42 09:42 09:42 WBC RBC Hgb Hct MCV MCH MCHC RDW Plt Count MPV Neut % (Auto) Lymph % (Auto) [place] % (Auto) Eos % (Auto) Baso % (Auto) Neut # (Auto) Lymph # (Auto) [place] # (Auto) Eos # (Auto) Baso # (Auto) WBC Differential Differential Comment Sodium Potassium Chloride Carbon Dioxide Anion Gap BUN Creatinine Estimated GFR POC Glucose Random Glucose Hemoglobin A1c 6.7 H Lactic Acid Calcium Total Bilirubin AST ALT Alkaline Phosphatase B-Natriuretic Peptide Total Protein Albumin Triglycerides 71 Cholesterol 119 L LDL Cholesterol, Calc 71 HDL Cholesterol 34.1 L Cholesterol/HDL Ratio 3.48 Vitamin B12 632 TSH 1.510 Cancelled Urine Color Urine Clarity Urine pH Ur Specific [place] Urine Protein Urine Glucose (UA) Urine Ketones Urine Occult Blood Urine Nitrate Urine Bilirubin Urine Urobilinogen Ur Leukocyte Esterase Urine RBC Urine WBC Ur Squamous Epith Cells Urine Mucus Micro UA Comment Ur Microscopic Review Urine Culture Comments 04/27/18 04/27/18 04/27/18 09:42 10:04 12:29 WBC RBC Hgb Hct MCV MCH MCHC RDW Plt Count MPV Neut % (Auto) Lymph % (Auto) [place] % (Auto) Eos % (Auto) Baso % (Auto) Neut # (Auto) Lymph # (Auto) [place] # (Auto) Eos # (Auto) Baso # (Auto) WBC Differential Differential Comment Sodium Potassium Chloride Carbon Dioxide Anion Gap BUN Creatinine Estimated GFR POC Glucose 98 88 Random Glucose Hemoglobin A1c Lactic Acid Calcium Total Bilirubin AST ALT Alkaline Phosphatase B-Natriuretic Peptide Total Protein Albumin Triglycerides Cholesterol LDL Cholesterol, Calc HDL Cholesterol Cholesterol/HDL Ratio Vitamin B12 Cancelled TSH Urine Color Urine Clarity Urine pH Ur Specific [place] Urine Protein Urine Glucose (UA) Urine Ketones Urine Occult Blood Urine Nitrate Urine Bilirubin Urine Urobilinogen Ur Leukocyte Esterase Urine RBC Urine WBC Ur Squamous Epith Cells Urine Mucus Micro UA Comment Ur Microscopic Review Urine Culture Comments Microbiology 04/26/18 20:20 Wound - Ankle Gram Stain - Final 04/26/18 20:20 Wound - Ankle Wound Culture - Preliminary Staphylococcus aureus Group A beta Strep 04/26/18 20:20 Blood - Peripheral Aerobic Blood Culture - Preliminary No growth in 1 day 04/26/18 20:20 Blood - Peripheral Anaerobic Blood Culture - Preliminary No growth in 1 day 04/26/18 20:00 Blood - Peripheral Aerobic Blood Culture - Preliminary No growth in 1 day 04/26/18 20:00 Blood - Peripheral Anaerobic Blood Culture - Preliminary No growth in 1 day - Imaging Impressions Venous Doppler Study 04/26/18 19:56 CONCLUSION: No DVT. Chest X-Ray 04/26/18 19:58 CONCLUSION: No acute cardiothoracic process. Ankle X-Ray 04/26/18 21:43 CONCLUSION: Edema and possible ulcer seen laterally. Chronic hypertrophic change as described above. Assessment and Plan - Plan 67 year old male with right lateral lower extremity venous stasis ulceration Patient examined evaluated with all questions answered Will obtain arterial studies Wound care to evaluate for Unna boot placement once arterial studies are completed Dressing applied consisting of Xeroform 4 x 4's Nirali and Gigi Recommend Maxorb sorb Ag 2+ with Unna boot placement, once patient evaluated by wound No surgical intervention planned
[2018-04-27] MEDS: Lisinopril 10 MG Tablet PO SCH (17:50)
[2018-04-28] MEDS: Aztreonam Inj 2 GM in Sodium Chloride 0.9% Inj 100 ML IV.SIG SCH ×3 (04:49→21:17)
[2018-04-28] MEDS: Sod Chloride 0.9% Inj 1,000 ML IV.CONT SCH ×2 (04:52→16:20)
[2018-04-28] MEDS: Vancomycin Inj 1,500 MG in Sodium Chlor 0.9% Inj 500 ML IV.SIG SCH ×2 (05:32→22:24)
[2018-04-28] MEDS: Insulin NovoLOG Aspart Correctional Sugar Inj SQ SCH ×4 (08:55→21:39)
[2018-04-28] MEDS: Lisinopril 10 MG Tablet PO SCH (08:55)
--- NOTE | 2018-04-28 11:27 | ECHRPT ---
EXAM DATE: 04/28/2018 11:16 AM EDT AGE/SEX: 67 years / Male INDICATIONS: Right lower extremity cellulitis, Sepsis CLINICAL DATA: This is the patient's initial encounter. Patient reports that signs and symptoms have been present for 1 month and indicates a pain score of 5/10. MEDICAL/SURGICAL HISTORY: . Diabetes . none COMPARISON: No prior exams available for comparison. TECHNIQUE: Five-station segmental examination of the lower extremities was performed. Pulsed-cuff wa veform tracings and pressures were recorded. Ankle-brachial indices and toe-brachial indices were rei culated. PRESSURES (mmHg): Brachial (arm) : RIGHT: 124, LEFT: IV SITE Lower Thigh : RIGHT: 183, LEFT: 175 Calf : RIGHT: 153, LEFT: 159 Ankle : RIGHT: 131, LEFT: 164 LILIANA : RIGHT: 1.06, LEFT: 1.32 Toe : RIGHT: 76, LEFT: 112 TBI : RIGHT: 0.61, LEFT: 0.90 RIGHT: , LEFT: FINDINGS: Pulsed-Cuff Waveform: There are good upstroke and dicrotic downstroke of the tracings. Other: None. CONCLUSION: 1. There is no significant segmental pressure gradient in the left lower extremity although the left lower extremity LILIANA is supernormal which may indicate diffusely calcified vessels. Calcified vessels significantly limit utility of ankle-brachial indices in evaluating peripheral arterial disease. Con radiologic technologist CTA examination if there is continued significant clinical concern particularly on the left. 2. Normal range right lower extremity ABIs without significant pressure gradient. Electronically signed by: Dioni Rutherford MD 04/28/2018 11:26 AM EDT
--- NOTE | 2018-04-28 15:07 | P.PN ---
Subjective Interval history: This is a pleasant 67 y/o Male with DM II, who came to ER with right ankle, with wound and swelling he has had the wound for the past month and it is not healing. He states the pain is aching, intermittent 6/10, to the right ankle with no radiation, and with associated edema, and worse with walking and movement. Denies any associated fevers, chills, chest pain, sob, or headaches. He does not have a pcp and has not had any treatment. Given Aztreonam and Vancomycin in ER, he is allergic to Penicillin, temperature 102.7F, seen in his bedroom and nurse and patient asking to eat was started on diet, awaiting for Podiatry specialist evaluation. 04/28: Today seen by Podiatry specialist recommended to continue with Wound care for Unna Boot placement recommended Maxorb Sorb Ag 2+ with Unna Boot placement no surgical intervention planned. no nausea vomit or diarrhea. Physical Exam Vital signs: Vital Signs 04/27/18 16:00 04/27/18 20:00 04/28/18 00:00 Temperature 99.3 F 101.5 F H 98.4 F Pulse Rate 95 H 94 H 91 H Respiratory Rate 18 22 22 Blood Pressure 170/70 H 160/84 H 141/69 H Pulse Oximetry 95 93 L 94 L 04/28/18 04:00 04/28/18 08:00 04/28/18 09:00 Temperature 97.9 F 97.9 F Pulse Rate 84 87 87 Respiratory Rate 20 18 Blood Pressure 146/76 H 144/76 H Pulse Oximetry 94 L 95 04/28/18 12:00 Temperature 97.6 F Pulse Rate 68 Respiratory Rate 18 Blood Pressure 153/89 H Pulse Oximetry 94 L Intake & Output 04/27/18 04/28/18 04/28/18 18:59 06:59 18:59 Intake Total 2475 / 2475 1320 / 1320 Output Total 1700 / 1700 1100 / 1100 Balance 775 / 775 220 / 220 Weight 106.6 kg Intake: IV 1715 / 1715 1200 / 1200 NS Inj 1,000 ML @ 100 mls/hr IV 1000 / 1000 1000 / 1000 .CONT .Q10H [facility] Rx#:[id number] Azactam Inj 2 GM In NS Inj 100 200 / 200 200 / 200 ML @ 200 mls/hr IV.SIG Q8H [facility] Rx#:[id number] Vancomycin Inj 1,500 MG In NS 515 / 515 Inj 500 ML @ 250 mls/hr IV.SIG Q18H [facility] Rx#:[id number] Oral 760 / 760 120 / 120 Output: Urine 1700 / 1700 1100 / 1100 Other: Date of Last Bowel Movement 04/26/18 04/26/18 Narrative: GENERAL: This is a well-nourished, well-developed patient, in no apparent distress. SKIN: Right lateral ankle wound, non healing, non draining CARDIOVASCULAR: Regular rate and rhythm without murmurs, gallops, or rubs. RESPIRATORY: Clear to auscultation. Breath sounds equal bilaterally. No wheezes , rales, or rhonchi. GASTROINTESTINAL: Abdomen soft, non-tender, nondistended. Normal active bowel sounds MUSCULOSKELETAL: Right foot dressed. NEURO: Alert & Oriented x4 to person, place, time, situation. Moves all ext x4 Results - Labs CBC & Chem 7: 04/27/18 05:45 04/27/18 05:45 Laboratory Results - last 24 hr 04/27/18 04/27/18 04/28/18 16:39 20:53 08:16 POC Glucose 164 H 111 H 97 04/28/18 12:04 POC Glucose 88 Microbiology 04/26/18 20:20 Blood - Peripheral Aerobic Blood Culture - Preliminary No growth in 2 days 04/26/18 20:20 Blood - Peripheral Anaerobic Blood Culture - Preliminary No growth in 2 days 04/26/18 20:00 Blood - Peripheral Aerobic Blood Culture - Preliminary No growth in 2 days 04/26/18 20:00 Blood - Peripheral Anaerobic Blood Culture - Preliminary No growth in 2 days 04/26/18 20:20 Wound - Ankle Gram Stain - Final 04/26/18 20:20 Wound - Ankle Wound Culture - Final Staphylococcus aureus Group A beta Strep - Imaging Impressions Extremity Arterial Study 04/27/18 15:42 CONCLUSION: 1. There is no significant segmental pressure gradient in the left lower extremity although the left lower extremity LILIANA is supernormal which may indicate diffusely calcified vessels. Calcified vessels significantly limit utility of ankle-brachial indices in evaluating peripheral arterial disease. Consider CTA examination if there is continued significant clinical concern particularly on the left. 2. Normal range right lower extremity ABIs without significant pressure gradient. Venous Doppler Study 04/26/18 19:56 CONCLUSION: No DVT. Chest X-Ray 04/26/18 19:58 CONCLUSION: No acute cardiothoracic process. Ankle X-Ray 04/26/18 21:43 CONCLUSION: Edema and possible ulcer seen laterally. Chronic hypertrophic change as described above. - Procedures None Assessment and Plan - Plan 67 y/o male with a history of DM presented to the ED for a right ankle wound with pain and swelling. Patient states he has had the wound for the past month and it is not healing. Severe Sepsis, Tachycardia, wbc 17.2, lactic 2.6, likely due to a diabetic ulcer -IV antibiotics: Vancomycin and Azactam -NS bolus given in ED, cont IVF -Trend lactic acid and cbc -following blood culture and wound culture. has Staph Aureus will continue present antibiotics and de escalate tomorrow if no BSI will switch to by mouth medicines and may be discharge after Unna Boot placement. Diabetic ulcer, right lateral ankle Ankle xray reviewed and shows edema and possible ulcer, no fracture -seen by Podiatry specialist recommended to continue with Wound care for Unna Boot placement recommended Maxorb Sorb Ag 2+ with Unna Boot placement no surgical intervention planned. Diabetes, chronic hemoglobin A1C 6.7 -Accu checks with SSI -Diabetic diet JAIRO on CKD improved to baseline. Hypertension mild uncontrol will need to continue Lisinopril increased to 20 mg daily. DVT prophylaxis: SCDs Code Status: Full code. Discussed Condition With: Patient and Nurse. Discharge Planning: Once cleared by Podiatry.
[2018-04-28] MEDS ORDERED: Lisinopril 10 MG Tablet PO SCH (15:14)
[2018-04-28] MEDS ORDERED: Lisinopril 10 MG Tablet PO ONE (15:14)
--- NOTE | 2018-04-28 17:46 | P.PNWCN ---
Wound Care Nurse Consult Description: Received wound management consult for unna boot placement, awaiting vascular studies from Doctor Holder Communicated with: JAKE Cruz [address] [place] and Doctor Holder Recommendation: Please leave Vazquez boots to ble in place. Wound care nurse will change on Thursday and then every 3 to 5 days Wound/Pressure Injury - Patient Status Premedicated for Pain Prior to Dressing Change: No - Wound Right lateral Ankle Wound Assessment: Ongoing Wound Type: Traumatic Wound Is This a Chronic Wound: Yes Length: 2 (cm) Width: 3 (cm) Depth: 0.6 (cm) Wound Bed Appearance: [place], Red, White Wound Bed Appearance: Wound bed presents with ~90% red granulated tissue and ~10% white tissue. Periwound presents with 3 areas of partial thickness skin loss in a linear pattern at 12 o'clock. Surrounding Tissue Temperature: Cool Drainage Description: Serosanguinous Drainage Amount: Minimal Drainage Odor: No Odor Dressing Status: Changed Cleansing Solution: Saline Wound Packing Type: Alginate (Maxobr extra AG) Cover Dressing: Unna Boot (Vazquez boot: unna boot, with rolled gauze and coban) Tape Type: Paper Wound Dressing Change Date: 04/28/18 Wound Margin Description: Well defined and steep Left Calf Wound Assessment: Ongoing Wound Type: Traumatic Wound Length: 1.2 (cm) Width: 1 (cm) Depth: 0.6 (~0.6cm) Wound Bed Appearance: Red, White Wound Bed Appearance: Wound bed presents with ~90% red granulation tissue and ~10% white tissue. Periwound is unremarkable. Surrounding Tissue Temperature: Cool Drainage Description: Serosanguinous Drainage Amount: Minimal Drainage Odor: No Odor Dressing Status: Changed Cleansing Solution: Saline Wound Packing Type: Alginate (Maxorb extra AG) Cover Dressing: Unna Boot (Vazquez boot: unna boot, rolled gauze and coban) Tape Type: Paper Wound Dressing Change Date: 04/28/18 Wound Margin Description: Wound has a round shape and steep well defined wound margins. - Additional Information Patient seen for Vazquez boot application following LILIANA results per order from Doctor Holder podiatry. Wound descriptions and measurements are noted above.Patient tolerated procedure well. Incision - Patient Status Premedicated for Pain Prior to Dressing Change: No
[2018-04-28] MEDS ORDERED: Pharmacy Ordered Lab Info OTHER ONE (21:45)
[2018-04-29] MEDS: Aztreonam Inj 2 GM in Sodium Chloride 0.9% Inj 100 ML IV.SIG SCH ×2 (05:36→13:14)
[2018-04-29] MEDS: Insulin NovoLOG Aspart Correctional Sugar Inj SQ SCH ×2 (08:09→13:09)
[2018-04-29] MEDS ORDERED: Vancomycin Inj 1,500 MG in Sodium Chlor 0.9% Inj 500 ML IV.SIG SCH (10:00)
--- NOTE | 2018-04-29 12:27 | P.PN ---
Subjective Interval history: This is a pleasant 67 y/o Male with DM II, who came to ER with right ankle, with wound and swelling he has had the wound for the past month and it is not healing. He states the pain is aching, intermittent 6/10, to the right ankle with no radiation, and with associated edema, and worse with walking and movement. Denies any associated fevers, chills, chest pain, sob, or headaches. He does not have a pcp and has not had any treatment. Given Aztreonam and Vancomycin in ER, he is allergic to Penicillin, temperature 102.7F, seen in his bedroom and nurse and patient asking to eat was started on diet, awaiting for Podiatry specialist evaluation. 04/28: Today seen by Podiatry specialist recommended to continue with Wound care for Unna Boot placement recommended Maxorb Sorb Ag 2+ with Unna Boot placement no surgical intervention planned. 04/29: Stable in his bedroom already placed Unna Boot no new issues discussed with Dialysis Chief Equipment Technician Unna Boot does not require Wound care follow at home needs to be placed and left there until seen by Wound care again 05/03/18 no nausea, vomit or diarrhea. Physical Exam Vital signs: Vital Signs 04/28/18 16:00 04/28/18 22:44 04/29/18 00:00 Temperature 98.0 F 98.2 F 98.0 F Pulse Rate 82 96 H 73 Respiratory Rate 18 18 18 Blood Pressure 160/85 H 175/95 H 161/93 H Pulse Oximetry 95 96 95 04/29/18 04:00 04/29/18 08:00 04/29/18 09:00 Temperature 98.6 F Pulse Rate 100 H 100 H 100 H Respiratory Rate 20 Blood Pressure 160/89 H Pulse Oximetry 96 Intake & Output 04/28/18 04/29/18 04/29/18 18:59 06:59 18:59 Intake Total 2415 / 2415 1315 / 1315 100 / 100 Output Total 1300 / 1300 1235 / 1235 Balance 1115 / 1115 80 / 80 100 / 100 Intake: IV 1615 / 1615 1315 / 1315 100 / 100 NS Inj 1,000 ML @ 100 mls/hr IV 1000 / 1000 700 / 700 .CONT .Q10H [facility] Rx#:[id number] Azactam Inj 2 GM In NS Inj 100 100 / 100 100 / 100 100 / 100 ML @ 200 mls/hr IV.SIG Q8H [facility] Rx#:[id number] Vancomycin Inj 1,500 MG In NS 515 / 515 515 / 515 Inj 500 ML @ 250 mls/hr IV.SIG Q18H [facility] Rx#:[id number] Oral 800 / 800 Output: Urine 1300 / 1300 1235 / 1235 Other: Date of Last Bowel Movement 04/26/18 04/26/18 # Bowel Movements 1 2 Narrative: GENERAL: This is a well-nourished, well-developed patient, in no apparent distress. SKIN: Right lateral ankle wound, non healing, non draining CARDIOVASCULAR: Regular rate and rhythm without murmurs, gallops, or rubs. RESPIRATORY: Clear to auscultation. Breath sounds equal bilaterally. No wheezes , rales, or rhonchi. GASTROINTESTINAL: Abdomen soft, non-tender, nondistended. Normal active bowel sounds MUSCULOSKELETAL: Bilateral Unna Boot in place. NEURO: Alert & Oriented x4 to person, place, time, situation. Moves all ext x4 Results - Labs CBC & Chem 7: 04/27/18 05:45 04/27/18 05:45 Laboratory Results - last 24 hr 04/28/18 04/28/18 04/28/18 16:49 21:16 21:30 POC Glucose 101 117 H Vancomycin Trough 10.3 H 04/29/18 04/29/18 07:58 12:08 POC Glucose 86 103 Vancomycin Trough Microbiology 04/26/18 20:20 Blood - Peripheral Aerobic Blood Culture - Preliminary No growth in 3 days 04/26/18 20:20 Blood - Peripheral Anaerobic Blood Culture - Preliminary No growth in 3 days 04/26/18 20:00 Blood - Peripheral Aerobic Blood Culture - Preliminary No growth in 3 days 04/26/18 20:00 Blood - Peripheral Anaerobic Blood Culture - Preliminary No growth in 3 days 04/26/18 20:20 Wound - Ankle Gram Stain - Final 04/26/18 20:20 Wound - Ankle Wound Culture - Final Staphylococcus aureus Group A beta Strep - Procedures Unna Boot in place bilateral. Assessment and Plan - Plan 67 y/o male with a history of DM presented to the ED for a right ankle wound with pain and swelling. Patient states he has had the wound for the past month and it is not healing. Severe Sepsis, Tachycardia, wbc 17.2, lactic 2.6, likely due to a diabetic ulcer -IV antibiotics: Vancomycin and Azactam -NS bolus given in ED, cont IVF -Trend lactic acid and cbc -following blood culture and wound culture. has Staph Aureus will continue present antibiotics and de escalate tomorrow No BSI switch to Clindamycin by mouth and discharge on this antibiotic. Diabetic ulcer, right lateral ankle Ankle xray reviewed and shows edema and possible ulcer, no fracture -seen by Podiatry specialist recommended to continue with Wound care for Unna Boot placement recommended Maxorb Sorb Ag 2+ with Unna Boot placement no surgical intervention planned. \ Unna boot in place. Diabetes, chronic hemoglobin A1C 6.7 -Accu checks with SSI -Diabetic diet, will go home on Metformin and follow with PCP JAIRO on CKD improved Hypertension Uncontrolled now continue Lisinopril, giving Clonidine as needed and add HCTZ 12.5 mg daily. DVT prophylaxis: SCDs Code Status: Full Code Discussed Condition With: Patient and nurse Miss Dale and Dialysis Chief Equipment Technician. Discharge Planning: Once blood pressure stable.
[2018-04-29 12:46] VITALS: PULSE 87; RESP 18; TEMP 98.3; O2SAT 98
[2018-04-29 14:48] VITALS: BP 135/83
--- NOTE | 2018-04-29 14:48 | P.DCO ---
- Diagnosis (1) Foot ulcer - Home Health Nursing Order: Medical education, Signs/symptoms of disease process, Diabetic education , Medication education-adverse effect, Wound care and dressing changes, Nursing assessment with vital signs - Certification I have seen patient Reece Elizabeth on 04/29/18. My clinical findings support the need for the requested home health care services because: Limited mobility due to disease progression I certify that my clinical findings support that this patient is homebound because: Unsafe to leave home unassisted (1) Foot ulcer Qualifiers: Laterality: left
--- NOTE | 2018-04-29 14:52 | P.DS ---
Date of admission: 04/26/18 22:26 Primary care physician: Rich Steele DO Attending physician on discharge: Edwin Mccloud Anticipated date of discharge: 04/29/18 Brief History from admission: 67 y/o male with a history of DM presented to the ED for a right ankle wound with pain and swelling. Patient states he has had the wound for the past month and it is not healing. He states the pain is aching, intermittent 6/10, to the right ankle with no radiation, and with associated edema, and worse with walking and movement. Denies any associated fevers, chills, chest pain, sob, or headaches. He does not have a pcp and has not had any treatment. DS: Diagnosis - Discharge Diagnosis (1) Foot ulcer Status: Acute DS: Medications - Discharge Medications Prescriptions: hydrocodone-acetaminophen 1 tab PO Q4H PRN #14 tab PRN Reason: pain >5 DS: Summary Hospital Course: This is a pleasant 67 y/o Male with DM II, who came to ER with right ankle, with wound and swelling he has had the wound for the past month and it is not healing. He states the pain is aching, intermittent 6/10, to the right ankle with no radiation, and with associated edema, and worse with walking and movement. Denies any associated fevers, chills, chest pain, sob, or headaches. He does not have a pcp and has not had any treatment. Given Aztreonam and Vancomycin in ER, he is allergic to Penicillin, temperature 102.7F, seen in his bedroom and nurse and patient asking to eat was started on diet, awaiting for Podiatry specialist evaluation. 04/28: Today seen by Podiatry specialist recommended to continue with Wound care for Unna Boot placement recommended Maxorb Sorb Ag 2+ with Unna Boot placement no surgical intervention planned. 04/29: Stable in his bedroom already placed Unna Boot no new issues discussed with Technical Account Representative Unna Boot does not require Wound care follow at home needs to be placed and left there until seen by Wound care again 05/03/18 no nausea, vomit or diarrhea. 04/26/18 20:20 Blood - Peripheral Aerobic Blood Culture - Preliminary No growth in 3 days 04/26/18 20:20 Blood - Peripheral Anaerobic Blood Culture - Preliminary No growth in 3 days 04/26/18 20:00 Blood - Peripheral Aerobic Blood Culture - Preliminary No growth in 3 days 04/26/18 20:00 Blood - Peripheral Anaerobic Blood Culture - Preliminary No growth in 3 days 04/26/18 20:20 Wound - Ankle Gram Stain - Final 04/26/18 20:20 Wound - Ankle Wound Culture - Final Staphylococcus aureus Group A beta Strep - Procedures Unna Boot in place bilateral. Assessment and Plan - Plan 67 y/o male with a history of DM presented to the ED for a right ankle wound with pain and swelling. Patient states he has had the wound for the past month and it is not healing. Severe Sepsis, Tachycardia, wbc 17.2, lactic 2.6, likely due to a diabetic ulcer -IV antibiotics: Vancomycin and Azactam -NS bolus given in ED, cont IVF -Trend lactic acid and cbc -following blood culture and wound culture. has Staph Aureus will continue present antibiotics and de escalate tomorrow No BSI switch to Clindamycin by mouth and discharge on this antibiotic. Diabetic ulcer, right lateral ankle Ankle xray reviewed and shows edema and possible ulcer, no fracture -seen by Podiatry specialist recommended to continue with Wound care for Unna Boot placement recommended Maxorb Sorb Ag 2+ with Unna Boot placement no surgical intervention planned. \ Unna boot in place. will continue in place until Diabetes, chronic hemoglobin A1C 6.7 -Accu checks with SSI -Diabetic diet, will go home on Metformin and follow with PCP JAIRO on CKD improved Hypertension Uncontrolled now continue Lisinopril, giving Clonidine as needed and add HCTZ 12.5 mg daily. discharge on Lisinopril 40 mg daily and HCTZ 12.5 mg daily. DVT prophylaxis: SCDs Code Status: Full Code Discussed Condition With: Patient and nurse Miss Dale and Technical Account Representative. Discharge Planning: now blood pressure stable okay to discharge. systolic blood pressure in 136/76 mm Hg. - Time Spent with Patient Total time spent providing and/or coordinating discharge services: Less than 30 minutes - Quality: VTE Deep Vein Thrombosis/Pulmonary Embolism Present on Admission: No Exam Vital signs: Vital Signs 04/28/18 16:00 04/28/18 22:44 04/29/18 00:00 Temperature 98.0 F 98.2 F 98.0 F Pulse Rate 82 96 H 73 Respiratory Rate 18 18 18 Blood Pressure 160/85 H 175/95 H 161/93 H Pulse Oximetry 95 96 95 04/29/18 04:00 04/29/18 08:00 04/29/18 09:00 Temperature 98.6 F 97.9 F Pulse Rate 100 H 80 100 H Respiratory Rate 20 18 Blood Pressure 160/89 H 157/90 H Pulse Oximetry 96 95 04/29/18 12:00 04/29/18 14:47 Temperature 98.3 F Pulse Rate 87 Respiratory Rate 18 Blood Pressure 184/88 H 135/83 Pulse Oximetry 98 Intake & Output 04/28/18 04/29/18 04/29/18 18:59 06:59 18:59 Intake Total 2415 / 2415 1315 / 1315 100 / 100 Output Total 1300 / 1300 1235 / 1235 Balance 1115 / 1115 80 / 80 100 / 100 Intake: IV 1615 / 1615 1315 / 1315 100 / 100 NS Inj 1,000 ML @ 100 mls/hr IV 1000 / 1000 700 / 700 .CONT .Q10H [facility] Rx#:[id number] Azactam Inj 2 GM In NS Inj 100 100 / 100 100 / 100 100 / 100 ML @ 200 mls/hr IV.SIG Q8H [facility] Rx#:[id number] Vancomycin Inj 1,500 MG In NS 515 / 515 515 / 515 Inj 500 ML @ 250 mls/hr IV.SIG Q18H [facility] Rx#:[id number] Oral 800 / 800 Output: Urine 1300 / 1300 1235 / 1235 Other: Date of Last Bowel Movement 04/26/18 04/26/18 # Bowel Movements 1 2 Narrative: GENERAL: This is a well-nourished, well-developed patient, in no apparent distress. SKIN: Right lateral ankle wound, non healing, non draining CARDIOVASCULAR: Regular rate and rhythm without murmurs, gallops, or rubs. RESPIRATORY: Clear to auscultation. Breath sounds equal bilaterally. No wheezes , rales, or rhonchi. GASTROINTESTINAL: Abdomen soft, non-tender, nondistended. Normal active bowel sounds MUSCULOSKELETAL: Bilateral Unna Boot in place. NEURO: Alert & Oriented x4 to person, place, time, situation. Moves all ext x4 Results Procedures completed during hospitalization: Unna Boot in place bilateral. Labs on day of discharge: Labs from last 24 hours 04/29/18 04/29/18 04/28/18 12:08 07:58 21:30 POC Glucose 103 86 Vancomycin Trough 10.3 H 04/28/18 04/28/18 21:16 16:49 POC Glucose 117 H 101 Vancomycin Trough Preliminary micro results at discharge 04/26/18 20:20 Aerobic Blood Culture - Preliminary Blood - Peripheral No growth in 3 days Anaerobic Blood Culture - Preliminary No growth in 3 days 04/26/18 20:00 Aerobic Blood Culture - Preliminary Blood - Peripheral No growth in 3 days Anaerobic Blood Culture - Preliminary No growth in 3 days - Impressions ITS Impressions Venous Doppler Study 04/26/18 19:56 CONCLUSION: No DVT. Chest X-Ray 04/26/18 19:58 CONCLUSION: No acute cardiothoracic process. Ankle X-Ray 04/26/18 21:43 CONCLUSION: Edema and possible ulcer seen laterally. Chronic hypertrophic change as described above. Extremity Arterial Study 04/27/18 15:42 CONCLUSION: 1. There is no significant segmental pressure gradient in the left lower extremity although the left lower extremity LILIANA is supernormal which may indicate diffusely calcified vessels. Calcified vessels significantly limit utility of ankle-brachial indices in evaluating peripheral arterial disease. Consider CTA examination if there is continued significant clinical concern particularly on the left. 2. Normal range right lower extremity ABIs without significant pressure gradient. Discharge Plan - Discharge Disposition Patient Disposition: /Home Health Service - Discharge Condition Condition: Stable - Discharge Order Discharge Orders: Discharge Order (Routine); Ordered 04/29/18 Ordered By: Edwin Mccloud Podiatry Clear for Discharge (Routine); Ordered 04/29/18 Ordered By: Es Holder - Discharge Details Anticipated Discharge Date: 04/29/18 Discharge Comment: Follow with PCP in three days and Podiatry as recommended. - Physicians Team Primary Care Provider: Rich Steele Attending Provider: Edwin Mccloud Other Providers: Es Holder DPM
[2018-04-30] MEDS ORDERED: Pharmacy Ordered Lab Info OTHER ONE (09:45)
== END 2018-04-29 18:17 | disposition home health service (06) ==
LOC: NEPC 18:40 → NEDA 22:26 → NEDH 04-27 02:26 → N07 04-27 08:45
PROVIDERS: ADMIT Internal Medicine; ATTEND Internal Medicine